=== PATIENT | female | born 1960 | race Caucasian/White ===

== ENCOUNTER → 2021-07-14 14:50 | Outpatient (CLI) | payer MEDICARE, BC, SELFPAY ==
--- NOTE | 2021-07-14 | DI.RAD.S_ITS ---
PROCEDURE: XR LUMBAR SPINE 2-3V INDICATIONS: SP INSERTION OF SPINAL CORD STIMULATOR TECHNIQUE: 2 views of the lumbar spine were acquired. COMPARISON: None. FINDINGS: Bones: 5 [id number] vertebrae are present. There is normal bony alignment. No vertebral body compression fractures. Moderate disc height loss with endplate osteophytosis at L5-S1. No suspicious bony lesions. Soft tissues: Overlying bowel gas pattern is normal. No suspicious soft tissue calcifications. A dorsal spinal device is noted. IMPRESSION: No acute osseous abnormality. Dictated by: Osorio Lawrence M.D. on 07/14/2021 at 15:54 Approved by: Osorio Lawrence M.D. on 07/14/2021 at 15:56
--- NOTE | 2021-07-14 | DI.RAD.S_ITS ---
PROCEDURE: XR THORACIC SPINE 2V INDICATIONS: SP INSERTION OF SPINAL CORD STIMULATOR TECHNIQUE: 2 views of the thoracic spine were acquired. COMPARISON: None. FINDINGS: Bones: No fractures or dislocations. No suspicious bony lesions. Minimal endplate osteophytosis. 12 pairs of ribs are noted, and appear intact where visualized. Soft tissues: No paravertebral stripe thickening. IMPRESSION: No acute abnormality. Dictated by: Osorio Lawrence M.D. on 07/14/2021 at 15:51 Approved by: Osorio Lawrence M.D. on 07/14/2021 at 15:52
== END ==
PROVIDERS: Referring Provider Pain Medicine Pain Medicine; Visit Provider Pain Medicine Pain Medicine
DX: Z96.82 Presence of neurostimulator (principal); Z09 Encounter for follow-up examination after completed treatment for conditions other than malignant neoplasm
CPT/HCPCS: 72070; 72100